=== PATIENT | female | born 1985 | race Caucasian/White ===

== ENCOUNTER 2016-06-19 17:26 | Emergency (ER) | payer OTHER ==
[~2016-06-19] VITALS: Ht 162.6 cm; Wt 74.8 kg
[2016-06-19 17:43] VITALS: BP 118/76
[2016-06-19] MEDS ORDERED: IBUPROFEN600 M1 PO (21:17)
[2016-06-19] MEDS ORDERED: OXYCODONE HCL5 M2 PO (21:17)
--- NOTE | 2016-06-19 21:18 | ED UPPER/LOWER EXTREMITY COMPL ---
History of Present Illness General Chief Complaint: Shoulder Injury Stated Complaint: R SIDE SHOULDER/NECK/BACK PAIN Source: patient, friend Exam Limitations: no limitations Vital Signs & Intake/Output Vital Signs & Intake/Output Vital Signs Date Time Temp Pulse Resp B/P B/P Pulse O2 O2 Flow FiO2 Mean Ox Delivery Rate 06/19 1743 97.2 80 15 118/76 96 Room Air Room Air Allergies Coded Allergies: latex (Intermediate, RASH 06/19/16) Reconcile Medications Ibuprofen 600 MG TABLET 1 TAB PO TID NECK PAIN with food Oxycodone HCl 5 MG CAPSULE 1 CAP PO 4XDP NECK PAIN Triage Note: PT TO ED FOR C/C OF R ARM, NECK PAIN, BACK PAIN S/P HELPING FRIEND PAINT A COUPLE OF DAYS AGO. 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 R ELBOW INTERMITTENT TINGLING WITH MOVEMENT. Triage Nurses Notes Reviewed? yes : No Patient currently breastfeeds: No HPI: 31 yo previously healthy F presenting with right neck/thoracic back pain. Patient was helping friends move boxes tonight, straining injury while lifting boxes, acute onset sharp/pinching quality pain in right thoracic back and right neck, some radiation down right arm, intermittent paresthesias, absent currently. Past History Travel History Traveled to [place] past 21 day No Medical History Any Pertinent Medical History? see below for history Neurological: NONE EENT: NONE Cardiovascular: NONE Respiratory: NONE Gastrointestinal: NONE Hepatic: NONE Renal: KIDNEY STONES Musculoskeletal: NONE Psychiatric: NONE Endocrine: NONE Blood Disorders: NONE Cancer(s): NONE RAT EXTERMINATOR/Reproductive: NONE Influenza Vaccine: 12/14/08 Surgical History Surgical History: none Psychosocial History What is your primary language Swiss Tobacco Use: Quit >30 days ago ETOH Use: denies use Illicit Drug Use: denies illicit drug use Family History Hx Contributory? No Review of Systems Review of Systems Constitutional: Reports: no symptoms. EENTM: Reports: no symptoms. Respiratory: Reports: no symptoms. Cardiovascular: Reports: no symptoms. Gastrointestinal/Abdominal: Reports: no symptoms. Genitourinary: Reports: no symptoms. Musculoskeletal: Reports: muscle pain, muscle stiffness. Skin: Reports: no symptoms. Neurological/Psychological: Reports: no symptoms. Hematologic/Endocrine: Reports: no symptoms. Immunological: Reports: no symptoms. All Other Systems: Reviewed and Negative Physical Exam Physical Exam General Appearance: well developed/nourished, no apparent distress, alert, awake , anxious Head: atraumatic, normal appearance Eyes: Bilateral: normal appearance. Ears, Nose, Throat: normal ENT inspection Neck: normal inspection, limited range of motion, tender lateral Cardiovascular/Respiratory: normal breath sounds, normal peripheral pulses Peripheral Pulses: 2+ radial (R), 2+ radial (L), 2+ dorsalis pedis (R), 2+ dorsalis pedis (L) Comments: Neck/back: Mildmoderate tenderness palpation of right lateral trapezius, right thoracic paraspinal muscles, some muscle spasm, 2+ radial pulses bilaterally, upper extremity strength 5 out of 5 bilaterally, no sensory deficits in bilateral upper extremities, no bony midline tenderness to palpation over cervical or thoracic spine Progress Differential Diagnosis: arterial insufficiency, compartment syndrome, contusion, dislocation, fracture, sprain Plan of Care: Current Medications Sig/Sangeetha Start time Last Medication Dose Stop Time Status Admin Ketorolac 30 MG ONCE ONE 06/19 2099 UNVr 06/19 Tromethamine 06/19 (Toradol) Physician MDM: 31 yo previously healthy F presenting with right neck/thoracic back pain. VSS, right shoulder/back exam as above. DDx: Cervical muscle strain, thoracic muscle strain, cervicalgia, low concern for spinal cord compression or C/T-spine fracture. Patient medicated with Toradol with improvement in pain. Discharged with teaching about management of cervical/thoracic muscle strain, pain control, given return precautions for signs of spinal cord impingement. (DARNELL MEDEROS,GABY) Departure Departure Disposition: HOME OR SELF CARE Condition: Stable Clinical Impression Primary Impression: Spasm of thoracic back muscle Referrals: PATIENT HAS NO PRIMARY CARE DR (PCP/Family) Additional Instructions: Take Tylenol or ibuprofen for mild to moderate pain. Take oxycodone for severe pain. Follow-up with your primary care doctor in the next 2-3 days. Return to the emergency department for any new, worsening, or concerning symptoms. Departure Forms: Customer Survey General Discharge Information Prescriptions: Current Visit Scripts Ibuprofen 1 TAB PO TID #90 TAB with food Oxycodone HCl 1 CAP PO 4XDP #6 CAP
== END 2016-06-19 21:40 ==
LOC: ERH 17:26
DX: M62.830 Muscle spasm of back (principal)
CPT/HCPCS: 96372; J1885